=== PATIENT | female | born 1970 | race Caucasian/White ===

== ENCOUNTER 2020-07-23 08:11 | Day surgery (SDC) | payer MEDICAID, SELFPAY ==
[2020-07-21 07:34] LABS: BASOPHILS % (AUTO) 0.8 % (0.0-2.0); EOSINOPHILS # (AUTO) 0.3 K/uL (0-0.4); EOSINOPHILS % (AUTO) 5.3 % (0.0-4.0); HEMOGLOBIN 12.4 g/dL (12.0-16.0); LYMPHOCYTES % (AUTO) 38.1 % (20.5-51.1); MEAN CORPUSCULAR HEMOGLOBIN 30 pg (27-31); MEAN CORPUSCULAR HGB CONC 34 g/dL (33-37); MEAN CORPUSCULAR VOLUME 90.6 fL (80-94); MONOCYTES # (AUTO) 0.4 K/uL (0.8-1.0); MONOCYTES % (AUTO) 7.8 % (1.7-9.3); NEUTROPHILS # (AUTO) 2.6 K/uL (1.8-7.7); PLATELET COUNT (AUTO) 269 K/uL (140-450); RED BLOOD CELL COUNT(AUTO) 4.09 MIL/uL (4.20-5.40); RED CELL DISTRIBUTION WIDTH 13.7 % (11.6-13.7); WHITE BLOOD COUNT (AUTO) 5.4 K/uL (4.8-10.8)
[2020-07-21 07:48] LABS: ALBUMIN 4.2 g/dL (3.4-5.0); ANION GAP 9.8 (8-16); CARBON DIOXIDE 29.7 mmol/L (21-32); CREATININE 0.8 mg/dL (0.6-1.3); POTASSIUM 3.5 mmol/L (3.5-5.1); TOTAL BILIRUBIN 0.4 mg/dL (0.0-1.0)
[~2020-07-23] VITALS: Ht 157.5 cm; Wt 69.9 kg
[2020-07-23] MEDS ORDERED: CLINDAMYCIN 600 MG in DEXTROSE 5% 50 ML IV SCH (09:05)
[2020-07-23] MEDS ORDERED: BUPIVACAINE-MPF/EPI 0.25% 30 ML VIAL INJ ONE (09:20)
[2020-07-23] MEDS ORDERED: LIDOCAINE 1% 500 MG/50 ML VIAL ONE (09:20)
[2020-07-23] MEDS ORDERED: DEXAMETHASONE 4 MG/ML VIAL ONE (10:45)
[2020-07-23] MEDS ORDERED: SEVOFLURANE 250 ML BTL INH ONE (10:45)
[2020-07-23] MEDS ORDERED: fentaNYL citrate 0.05 MG/ML VIAL ONE (10:45)
[2020-07-23] MEDS ORDERED: MIDAZOLAM 2 MG/2 ML VIAL ONE (10:45)
[2020-07-23] MEDS ORDERED: MEPERIDINE 50 MG/ML SYR ONE (10:45)
[2020-07-23] MEDS ORDERED: PROPOFOL 200 MG/20 ML VIAL IV ONE (10:45)
[2020-07-23] MEDS ORDERED: ONDANSETRON 4 MG/2 ML VIAL ONE (10:45)
[2020-07-23] MEDS ORDERED: diphenhydrAMINE 50 MG/ML VIAL IVP PRN (11:35)
[2020-07-23] MEDS ORDERED: LACTATED RINGERS 1,000 ML IV SCH (11:35)
[2020-07-23] MEDS ORDERED: ONDANSETRON 4 MG/2 ML VIAL IVP PRN (11:35)
[2020-07-23] MEDS ORDERED: HYDROmorphone 1 MG/ML AMP IVP PRN ×2 (11:35→12:30)
[2020-07-23] MEDS ORDERED: MEPERIDINE 25 MG/ML SYR IVP PRN (11:35)
[2020-07-23] MEDS ORDERED: MORPHINE SULFATE 2 MG/ML SYR IVP PRN (12:30)
[2020-07-23] MEDS ORDERED: ONDANSETRON 4 MG/2 ML VIAL IV PRN (12:30)
[2020-07-23] MEDS ORDERED: MORPHINE SULFATE 4 MG/ML SYR IV PRN (12:30)
[2020-07-23] MEDS ORDERED: HYDROcodone/APAP 5/325 MG 1 TAB TAB PO PRN (12:30)
== END 2020-07-23 14:42 | disposition home or self-care (01) ==
LOC: MDS 08:11 → MMU 08:11 → MDS 14:42
PROVIDERS: ATTEND Surgery
DX: Z45.2 Encounter for adjustment and management of vascular access device (principal); C50.212 Malignant neoplasm of upper-inner quadrant of left female breast; L72.3 Sebaceous cyst; D17.23 Benign lipomatous neoplasm of skin and subcutaneous tissue of right leg; I10 Essential (primary) hypertension; Z88.0 Allergy status to penicillin
CPT/HCPCS: 27327; 36415; 36561; 71045; 76000; 76937; 80053; 85025; 86886; 86900; 86901; 87426; 88304; C1788; J1100; J1644; J2001; J2175; J2250; J2405; J2704; J3010; J3490; J7030; J7060; J7120

== ENCOUNTER 2021-06-13 08:55 | Day surgery (SDC) | payer MEDICAID, SELFPAY ==
[2021-06-12 10:03] LABS: BASOPHILS % (AUTO) 0.8 % (0.0-2.0); EOSINOPHILS # (AUTO) 0.1 K/uL (0-0.4); EOSINOPHILS % (AUTO) 1.8 % (0.0-4.0); HEMATOCRIT 36.1 % (36-48); HEMOGLOBIN 12.2 g/dL (12.0-16.0); LYMPHOCYTES # (AUTO) 1.1 K/uL (2.5-16.5); LYMPHOCYTES % (AUTO) 22.6 % (20.5-51.1); MEAN CORPUSCULAR HEMOGLOBIN 30 pg (27-31); MEAN CORPUSCULAR HGB CONC 34 g/dL (33-37); MEAN CORPUSCULAR VOLUME 89.5 fL (80-94); MONOCYTES # (AUTO) 0.4 K/uL (0.8-1.0); MONOCYTES % (AUTO) 7.6 % (1.7-9.3); NEUTROPHILS # (AUTO) 3.3 K/uL (1.8-7.7); NEUTROPHILS % (AUTO) 67.2 % (42.2-75.2); PLATELET COUNT (AUTO) 246 K/uL (140-450); RED BLOOD CELL COUNT(AUTO) 4.04 MIL/uL (4.20-5.40); RED CELL DISTRIBUTION WIDTH 13.9 % (11.6-13.7); WHITE BLOOD COUNT (AUTO) 4.9 K/uL (4.8-10.8)
[2021-06-12 10:37] LABS: ANION GAP 11.8 (8-16); CARBON DIOXIDE 30.6 mmol/L (21-32); CREATININE 0.7 mg/dL (0.6-1.3); POTASSIUM 4.4 mmol/L (3.5-5.1)
[~2021-06-13] VITALS: Ht 157.5 cm; Wt 72.6 kg
[2021-06-13] MEDS ORDERED: CLINDAMYCIN 600 MG in DEXTROSE 5% 50 ML IV SCH (09:30)
[2021-06-13] MEDS ORDERED: LIDOCAINE/EPI MPF 1%1:200000 30 ML VIAL INJ ONE (11:36)
[2021-06-13] MEDS ORDERED: MIDAZOLAM 2 MG/2 ML VIAL ONE (11:42)
[2021-06-13] MEDS ORDERED: fentaNYL citrate 0.05 MG/ML VIAL ONE (11:42)
[2021-06-13] MEDS ORDERED: BUPIVACAINE-MPF/EPI 0.25% 10 ML VIAL INJ ONE (11:44)
[2021-06-13] MEDS ORDERED: HYDROmorphone 1 MG/ML AMP IVP PRN ×2 (11:50→12:25)
[2021-06-13] MEDS ORDERED: ONDANSETRON 4 MG/2 ML VIAL IVP PRN (11:50)
[2021-06-13] MEDS ORDERED: MEPERIDINE 25 MG/ML SYR IVP PRN (11:50)
[2021-06-13] MEDS ORDERED: LACTATED RINGERS 1,000 ML IV SCH (11:50)
[2021-06-13] MEDS ORDERED: PROPOFOL 200 MG/20 ML VIAL IV ONE (11:57)
[2021-06-13] MEDS ORDERED: LIDOCAINE 2% 100 MG/5 ML SYR IVP ONE (11:59)
[2021-06-13] MEDS ORDERED: ONDANSETRON 4 MG/2 ML VIAL ONE (12:19)
[2021-06-13] MEDS ORDERED: MORPHINE SULFATE 4 MG/ML SYR IV PRN (12:25)
[2021-06-13] MEDS ORDERED: ONDANSETRON 4 MG/2 ML VIAL IV PRN (12:25)
[2021-06-13] MEDS ORDERED: MORPHINE SULFATE 2 MG/ML SYR IVP PRN (12:25)
[2021-06-13] MEDS ORDERED: HYDROcodone/APAP 5/325 MG 1 TAB TAB PO PRN (12:25)
== END 2021-06-13 14:00 | disposition home or self-care (01) ==
LOC: MMU 08:55 → MDS 08:55
PROVIDERS: ATTEND Surgery
DX: Z45.2 Encounter for adjustment and management of vascular access device (principal); I10 Essential (primary) hypertension; Z85.3 Personal history of malignant neoplasm of breast; F32.9 Major depressive disorder, single episode, unspecified; Z88.0 Allergy status to penicillin; Z79.899 Other long term (current) drug therapy; Z20.822 Contact with and (suspected) exposure to COVID-19
CPT/HCPCS: 36415; 36590; 71045; 80048; 85025; 87426; 93005; J2001; J2250; J2405; J2704; J3010; J3490; J7060